=== PATIENT | female | born 2000 | race Caucasian/White ===

== ENCOUNTER 2024-02-20 17:31 | Emergency (ER) | payer OTHER ==
[~2024-02-20] VITALS: Ht 165.1 cm; Wt 64.9 kg
[2024-02-20 17:34] VITALS: BP 118/84; PULSE 72; RESP 16; TEMP 97; O2SAT 98
[2024-02-20 18:04] VITALS: BP 115/76; PULSE 76; RESP 16; TEMP 97; O2SAT 98
[2024-02-20 19:15] LABS: BASOPHILS % (AUTO) 0.5 % (0.0-2.0); EOSINOPHILS # (AUTO) 0.1 K/uL (0-0.4); EOSINOPHILS % (AUTO) 0.8 % (0.0-4.0); HEMATOCRIT 40.1 % (36-48); LYMPHOCYTES # (AUTO) 2.8 K/uL (2.5-16.5); LYMPHOCYTES % (AUTO) 38.9 % (20.5-51.1); MEAN CORPUSCULAR HEMOGLOBIN 30 pg (27-31); MEAN CORPUSCULAR HGB CONC 35 g/dL (33-37); MEAN CORPUSCULAR VOLUME 84.4 fL (80-94); MONOCYTES # (AUTO) 0.6 K/uL (0.8-1.0); MONOCYTES % (AUTO) 8.3 % (1.7-9.3); NEUTROPHILS # (AUTO) 3.7 K/uL (1.8-7.7); NEUTROPHILS % (AUTO) 51.5 % (42.2-75.2); PLATELET COUNT (AUTO) 241 K/uL (140-450); RED BLOOD CELL COUNT(AUTO) 4.75 MIL/uL (4.20-5.40); RED CELL DISTRIBUTION WIDTH 12.8 % (11.6-13.7); WHITE BLOOD COUNT (AUTO) 7.1 K/uL (4.8-10.8)
[2024-02-20 19:32] LABS: ALBUMIN 3.7 g/dL (3.4-5.0); ANION GAP 11.1 (8-16); CALCIUM 8.8 mg/dL (8.5-10.1); CARBON DIOXIDE 27.7 mmol/L (21-32); CREATININE 0.8 mg/dL (0.6-1.3); POTASSIUM 3.8 mmol/L (3.5-5.1); TOTAL BILIRUBIN 0.5 mg/dL (0.0-1.0); TOTAL PROTEIN, SERUM 7.1 g/dL (6.4-8.2)
[2024-02-20 19:34] LABS: BILIRUBIN,URINE NEGATIVE (NEGATIVE); BLOOD, URINE 3+ (NEGATIVE); COLOR,URINE YELLOW (YELLOW); LEUKOCYTE ESTERASE ,URINE NEGATIVE (NEGATIVE); NITRITE, URINE NEGATIVE (NEGATIVE); PROTEIN,URINE NEGATIVE (NEGATIVE); UGLUCOSE NEGATIVE (NEGATIVE); UROBILINOGEN,URINE 0.2 EU/dL (0.2 - 1)
[2024-02-20 19:35] LABS: APPEARANCE,URINE SLIGHTLY CLOUDY (CLEAR)
[2024-02-20 19:37] LABS: BACTERIA,URINE 1+ /HPF (None Seen); MUCUS,URINE None Seen /LPF (None Seen); SQUAMOUS EPITHELIAL CELL,UR 4-10 (MOD) /LPF (0-3 (FEW)); WBC,URINE 0-5 /HPF (0-5)
[2024-02-20 19:38] LABS: URINE AMORPHOUS PHOSPHATES 2+ /HPF (None Seen)
[2024-02-20] MEDS ORDERED: CEPH-588 PO (19:45)
== END 2024-02-20 20:19 | disposition home or self-care (01) ==
LOC: MED 17:31
DX: O20.0 Threatened abortion (principal); O23.91 Unspecified genitourinary tract infection in pregnancy, first trimester; R82.71 Bacteriuria; Z3A.01 Less than 8 weeks gestation of pregnancy; Z79.899 Other long term (current) drug therapy
CPT/HCPCS: 36415; 80053; 81001; 84702; 85025; 86900; 86901; 99283

== ENCOUNTER 2024-02-23 10:15 | Emergency (ER) | payer OTHER ==
[~2024-02-23] VITALS: Ht 167.6 cm; Wt 64.9 kg
[~2024-02-23 10:15] MED LIST: CEPH-588 PO
[2024-02-23 10:19] VITALS: BP 127/95; PULSE 94; RESP 18; TEMP 97.5; O2SAT 96
[2024-02-23 11:07] LABS: BASOPHILS % (AUTO) 0.5 % (0.0-2.0); EOSINOPHILS # (AUTO) 0.1 K/uL (0-0.4); EOSINOPHILS % (AUTO) 1.4 % (0.0-4.0); HEMOGLOBIN 14.9 g/dL (12.0-16.0); LYMPHOCYTES # (AUTO) 2.1 K/uL (2.5-16.5); LYMPHOCYTES % (AUTO) 49.2 % (20.5-51.1); MEAN CORPUSCULAR HEMOGLOBIN 29 pg (27-31); MEAN CORPUSCULAR HGB CONC 35 g/dL (33-37); MEAN CORPUSCULAR VOLUME 83.1 fL (80-94); MONOCYTES # (AUTO) 0.4 K/uL (0.8-1.0); MONOCYTES % (AUTO) 8.5 % (1.7-9.3); NEUTROPHILS # (AUTO) 1.7 K/uL (1.8-7.7); NEUTROPHILS % (AUTO) 40.4 % (42.2-75.2); PLATELET COUNT (AUTO) 255 K/uL (140-450); RED BLOOD CELL COUNT(AUTO) 5.18 MIL/uL (4.20-5.40); RED CELL DISTRIBUTION WIDTH 12.8 % (11.6-13.7); WHITE BLOOD COUNT (AUTO) 4.2 K/uL (4.8-10.8)
[2024-02-23 11:25] LABS: BILIRUBIN,URINE NEGATIVE (NEGATIVE); BLOOD, URINE 3+ (NEGATIVE); COLOR,URINE YELLOW (YELLOW); LEUKOCYTE ESTERASE ,URINE TRACE (NEGATIVE); NITRITE, URINE NEGATIVE (NEGATIVE); PROTEIN,URINE 1+ (NEGATIVE); UGLUCOSE NEGATIVE (NEGATIVE); UROBILINOGEN,URINE 0.2 EU/dL (0.2 - 1)
[2024-02-23 11:47] LABS: APPEARANCE,URINE HAZY (CLEAR); RBC,URINE TOO NUMEROUS TO COUN /HPF (0-5)
[2024-02-23 11:48] LABS: BACTERIA,URINE OCCASSIONAL /HPF (None Seen); WBC,URINE 0-5 /HPF (0-5)
== END 2024-02-23 12:41 | disposition home or self-care (01) ==
LOC: MED 10:15
DX: O03.9 Complete or unspecified spontaneous abortion without complication (principal); Z79.899 Other long term (current) drug therapy
CPT/HCPCS: 36415; 81001; 81025; 84702; 85025; 99283